=== PATIENT | female | born 1995 ===

== ENCOUNTER 2016-09-05 08:05 | Emergency (ER) | payer MEDICAID ==
--- NOTE | 2016-09-07 16:08 | ER ---
ADMIT: 09/05/2016 RM/LOC: ER [facility] MR#: [id number] [address] [facility] [address] [place], [place] [address] [address] [place] [address] Emergency Room Report SEX: F AGE: 21 : 1995 DATE: 09/05/2016 TIME: 0805 hours. Please refer to my T-sheet for complete H and P. HISTORY OF PRESENT ILLNESS: Briefly, the patient is a 21-year-old, who is 29 weeks , comes in with nausea and vomiting. She says the cramping epigastric pain is 4/10. No pelvic pain. No low back pain. No vaginal bleeding. PHYSICAL EXAMINATION: VITAL SIGNS: Blood pressure 108/85, pulse 72, respiration 14, temp 97.3, sat 100%. GENERAL: No acute distress. HEENT: Grossly normal. LUNGS: Clear. HEART: Regular. ABDOMEN: Mildly tender epigastric. No rebound, no guarding. No pain over the uterus. No pain in her back. SKIN: No rash. EMERGENCY DEPARTMENT COURSE: She was given an L normal saline bolus, Reglan 10 IV. She was feeling much better. Her CBC was normal except hemoglobin of 11.5. Chemistries were normal except potassium of 3.6. Lipase normal. UA normal. She was ready for discharge. ASSESSMENT: 1. Nausea and vomiting. 2. . PLAN: Fluids, return if worse. I wrote her a script for Reglan. Follow up with her OB. Luis Hobbs MD/ jesus JOB #: [id number] CC: Luis Hobbs MD, Attending Physician Robert Marinelli MD, Family Physician
[2016-09-27] MEDS ORDERED: PRENATAL VIT1 TAB PO (14:32)
[2016-09-27] MEDS ORDERED: TYLENOL #3 DPS1 TAB PO (14:32)
[2016-09-27] MEDS ORDERED: REGLAN-DPS10 MG PO (14:32)
[2016-11-27] MEDS ORDERED: COLACE-DPS100 MG PO (07:44)
[2016-11-27] MEDS ORDERED: MOTRIN-DPS800 MG PO (07:44)
[2016-11-27] MEDS ORDERED: TYLENOL EXTRA500 M1 PO (07:45)
[2016-11-27] MEDS ORDERED: NIPPLECREAM TP (07:45)
[2016-11-27] MEDS ORDERED: DERMOPLAST SPRA56 GM TP (07:45)
[2016-11-27] MEDS ORDERED: LAN-O-SOOTHE7 GM TP (07:45)
[2016-11-27] MEDS ORDERED: TUCKS1 EACH PR (07:46)
== END 2016-09-05 10:10 | disposition home or self-care (01) ==
LOC: ER 08:05
DX: O21.9 Vomiting of pregnancy, unspecified (principal); Z3A.29 29 weeks gestation of pregnancy; Z98.890 Other specified postprocedural states

== ENCOUNTER 2016-09-24 18:23 | Outpatient (CLI) | payer MEDICAID ==
[2016-09-27] MEDS ORDERED: PRENATAL VIT1 TAB PO (14:32)
[2016-09-27] MEDS ORDERED: REGLAN-DPS10 MG PO (14:32)
[2016-09-27] MEDS ORDERED: TYLENOL #3 DPS1 TAB PO (14:32)
[2016-11-27] MEDS ORDERED: COLACE-DPS100 MG PO (07:44)
[2016-11-27] MEDS ORDERED: MOTRIN-DPS800 MG PO (07:44)
[2016-11-27] MEDS ORDERED: DERMOPLAST SPRA56 GM TP (07:45)
[2016-11-27] MEDS ORDERED: NIPPLECREAM TP (07:45)
[2016-11-27] MEDS ORDERED: LAN-O-SOOTHE7 GM TP (07:45)
[2016-11-27] MEDS ORDERED: TYLENOL EXTRA500 M1 PO (07:45)
[2016-11-27] MEDS ORDERED: TUCKS1 EACH PR (07:46)
== END 2016-09-24 21:20 | disposition home or self-care (01) ==
LOC: BC 18:23 → WOR 18:24 → 2LDRP 18:24 → BC 21:20 → 2LDRP 21:20
DX: O99.89 Other specified diseases and conditions complicating pregnancy, childbirth and the puerperium (principal); R10.9 Unspecified abdominal pain

== ENCOUNTER 2016-09-25 17:17 | Observation (INO) | payer MEDICAID ==
[~2016-09-25] VITALS: Ht 160 cm; Wt 93.0 kg
[2016-09-27] MEDS ORDERED: PRENATAL VIT1 TAB PO (14:32)
[2016-09-27] MEDS ORDERED: TYLENOL #3 DPS1 TAB PO (14:32)
[2016-09-27] MEDS ORDERED: REGLAN-DPS10 MG PO (14:32)
--- NOTE | 2016-10-30 08:28 | HP ---
ADMIT: 09/25/2016 RM/LOC: 218 [facility] MR#: [id number] [address] [id number] [place], [place] [address] LITO OSBORNE [address] [place] [address] History and Physical SEX: F AGE: 21 : 1995 DATE OF SERVICE: PRINCIPAL DIAGNOSES: 1. Intrauterine at 32-1/2 weeks' estimated gestational age. 2. Right flank pain. HISTORY OF PRESENT ILLNESS: The patient is a 21-year-old female, 1, para 0, who presented at 32-1/2 weeks' estimated gestational age with complaint of right-sided flank pain. PREVIOUS MEDICAL HISTORY: The patient denies any significant previous medical history. SOCIAL HISTORY: She does not smoke, drink, or use drugs. FAMILY HISTORY: She denies any significant family medical history. ALLERGIES: SHE HAS NO KNOWN MEDICAL ALLERGIES. PHYSICAL EXAMINATION: The patient is a well-developed, well-nourished, overweight, female, alert and oriented in no apparent distress with normal stream of thought and content of speech. On presentation, the patient quite uncomfortable. heart tones reassuring. No uterine activity noted on the monitor. LABORATORY WORKUP: Within normal limits. No LFT elevations concerning for atypical presentation of PIH. Urinalysis showed a specific gravity 1.011, no blood, no nitrites. Ultrasound was performed, which showed a probable small nonobstructing calculus in the right kidney. ASSESSMENT: 1. Intrauterine at 32 and 1/2 weeks' estimated gestational age. 2. Right-sided nephrolithiasis. PLAN: We will plan on admitting the patient for observation and beginning IV fluids. We will begin the patient on medications for pain and nausea, and we will monitor for passage of the stone. Rudolph Arellano MD/ jesus JOB #: [id number] CC: Shari Dumont, Attending Physician Shari Dumont, Family Physician
[2016-11-27] MEDS ORDERED: MOTRIN-DPS800 MG PO (07:44)
[2016-11-27] MEDS ORDERED: COLACE-DPS100 MG PO (07:44)
[2016-11-27] MEDS ORDERED: TYLENOL EXTRA500 M1 PO (07:45)
[2016-11-27] MEDS ORDERED: LAN-O-SOOTHE7 GM TP (07:45)
[2016-11-27] MEDS ORDERED: NIPPLECREAM TP (07:45)
[2016-11-27] MEDS ORDERED: DERMOPLAST SPRA56 GM TP (07:45)
[2016-11-27] MEDS ORDERED: TUCKS1 EACH PR (07:46)
== END 2016-09-26 18:25 | disposition home or self-care (01) ==
LOC: 2LDRP 17:17 → BC 17:17 → 2LDRP 21:50
DX: O99.89 Other specified diseases and conditions complicating pregnancy, childbirth and the puerperium (principal); N20.0 Calculus of kidney; Z3A.32 32 weeks gestation of pregnancy

== ENCOUNTER 2016-09-27 22:30 | Observation (INO) | payer MEDICAID ==
[~2016-09-27 22:30] MED LIST: PRENATAL VIT1 TAB PO; REGLAN-DPS10 MG PO; TYLENOL #3 DPS1 TAB PO
[2016-09-29] MEDS ORDERED: PRENATAL VIT1 TAB PO (19:54)
[2016-09-29] MEDS ORDERED: ZOFRAN4 MG PO (19:54)
[2016-09-29] MEDS ORDERED: TYLENOL #3 DPS1 TAB PO (19:54)
[2016-09-29] MEDS ORDERED: PERCOCET 5 DPS1 TAB PO (19:55)
--- NOTE | 2016-10-12 09:00 | HP ---
ADMIT: 09/27/2016 RM/LOC: 221 [facility] MR#: [id number] [address] [facility] [address] [place], [place] [address] LITO OSBORNE [address] [place], [place] [address] History and Physical SEX: F AGE: 21 : 1995 DATE OF SERVICE: HISTORY OF PRESENT ILLNESS: This is a 21-year-old, G1, P0, with an intrauterine at 33 weeks and 0 days by definite LMP consistent with a 19-weeks ultrasound. Her has been complicated by history of chlamydia, status post treatment and admission earlier this week for nephrolithiasis. She presents earlier overnight with complaints of increased back pain as well as epigastric pain, which is new, mild nausea, no emesis, no overt hematuria, notes good movement, no loss of fluid, no vaginal bleeding, and no contractions. The patient was placed on observation for several hours and made n.p.o. Her epigastric pain has changed minimally and her back pain is mildly improved. PAST MEDICAL HISTORY: No significant past medical history. PREVIOUS SURGICAL HISTORY: Appendectomy in 06/2005 and tonsillectomy in 06/2008. PAST SOCIAL HISTORY: She does not smoke. No tobacco, no alcohol. She is not . She does live with her mother. FAMILY HISTORY: No significant family history, is noncontributory. ALLERGIES: NO KNOWN DRUG ALLERGIES. MEDICATIONS: She is taking vitamin daily. OB LABS: She is O positive. Varicella immune. Quad screen normal. Diabetic screen was 96. Rubella immune. Syphilis IgG negative. HIV negative. Hepatitis B surface antigen negative. PHYSICAL EXAMINATION: VITAL SIGNS: Blood pressure is 110/50, pulse is 77, respirations 16, temperature is 98.1, she is 97% on room air. heart tones 120, moderate variability, positive accelerations, no decelerations. [place] shows no contractions. GENERAL: The patient looks mildly uncomfortable in the bed. HEART: Regular rate and rhythm. No murmurs, rubs, or gallops. LUNGS: Clear to auscultation bilaterally. SPINE: She has mild CVA tenderness posteriorly. She does have point tenderness over muscles in the lumbar region bilaterally. ABDOMEN: She does have positive tenderness in the right upper quadrant. Nevarez sign is negative. Tenderness does appear to be more over uterus, particularly over parts in the movement. This pain is not present over the uterus and lower uterine segment. She does not have good bowel sounds. LABORATORY: Shows white count of 6.1, hemoglobin of 10.5, platelets of 228. Sodium 142, potassium 3.7, chloride 109, CO2 of 25, BUN 4, creatinine 0.5, and glucose is 68. AST 24, ALT is 27. The patient did have a right upper ADMIT: 09/27/2016 RM/LOC: 221 [facility] MR#: [id number] [address] [place] [id number] [facility] [place] [address] History and Physical SEX: F AGE: 21 : 1995 quadrant ultrasound this morning and that was normal. ASSESSMENT AND PLAN: This is a 21-year-old, 1, para 0, with an intrauterine at 33 and 0/7th weeks. Abdominal pain, seems likely continued symptoms with nephrolithiasis. The patient did have mild relief as an outpatient with Tylenol No. 3, but has required morphine and Percocet while being on observation here. We will continue IV fluids that increased rate overnight. We will advance diet tonight, see how she tolerates that. Right upper quadrant pain is likely due to positioning and movement. Labs are all normal with the exam being normal, I did discuss it is possible, she could have some underlying gallbladder etiology and at this point, I would not be best managed by diet modification with reduction of fat and animal products. The patient is amenable to trying this plan. We will try to manage pain with only oral medications and evaluate for candidacy for discharge in the morning. Shari Dumont MD/ jesus JOB #: [id number] CC: Shari Dumont, Attending Physician Shari Dumont, Family Physician
[2016-11-27] MEDS ORDERED: MOTRIN-DPS800 MG PO (07:44)
[2016-11-27] MEDS ORDERED: COLACE-DPS100 MG PO (07:44)
[2016-11-27] MEDS ORDERED: DERMOPLAST SPRA56 GM TP (07:45)
[2016-11-27] MEDS ORDERED: TYLENOL EXTRA500 M1 PO (07:45)
[2016-11-27] MEDS ORDERED: LAN-O-SOOTHE7 GM TP (07:45)
[2016-11-27] MEDS ORDERED: NIPPLECREAM TP (07:45)
[2016-11-27] MEDS ORDERED: TUCKS1 EACH PR (07:46)
== END 2016-09-29 11:37 | disposition home or self-care (01) ==
LOC: BC 22:30 → 2LDRP 22:30
DX: O99.89 Other specified diseases and conditions complicating pregnancy, childbirth and the puerperium (principal); R10.9 Unspecified abdominal pain; N20.0 Calculus of kidney; Z23 Encounter for immunization; Z3A.32 32 weeks gestation of pregnancy; Z98.890 Other specified postprocedural states

== ENCOUNTER 2016-11-22 18:35 | Inpatient (IN) | payer MEDICAID ==
[~2016-11-22] VITALS: Ht 160 cm; Wt 95.3 kg
--- NOTE | ~2016-11-22 | FD ---
ADMIT: 11/22/2016 RM/LOC: 222 [facility] MR#: [id number] [address] [address] LITO OSB[address]NE [address] [facility] [address] [place], [place] [address] Final Diagnosis SEX: F AGE: 21 : 1995 ADMISSION DATE: 11/22/2016 DISCHARGE DATE: 11/25/2016 FINAL DIAGNOSIS: 1. Term intrauterine at 41 weeks. 2. History of Chlamydia in . PROCEDURE: 1. Spontaneous vaginal delivery. 2. Removal of epidural catheter. Shari Dumont MD/ chivo JOB #: [id number] CC: Shari Dumont MD, Attending Physician Shari Dumont MD, Family Physician
--- NOTE | ~2016-11-22 | HP ---
ADMIT: 11/22/2016 RM/LOC: 222 [facility] MR#: [id number] [address] [place], [place] [address] BRIGID OSBORNE [address] [place], [place] [id number] History and Physical SEX: F AGE: 21 : 1995 DATE OF SERVICE: HISTORY OF PRESENT ILLNESS: Brigid is a 21-year-old, G1, P0, at 40 weeks and 6/7th days, who was sent over to Labor and Delivery for induction of labor for post dates. Her is complicated by history of late presentation to care. She also had chlamydia in , which was negative on recheck. The patient also indicated around 33-34 weeks of gestation that she had a history of hemophilia or had been told by a physician that she had hemophilia. All her coagulation, PT, PTT, and INR testing as well as von Willebrand's workup were negative. The patient does not have a clinical history of abnormal bleeding or heavy periods. Records were eventually requested and received. Clinical history reviewed that when she was approximately [age] years old, she had presented for tonsillectomy. 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 PAST MEDICAL HISTORY: Please see HPI. PAST SURGICAL HISTORY: She had tonsillectomy in June of 2008 and appendectomy in 06/2005. No problems or complications with bleeding during those procedures. SOCIAL HISTORY: She lives with her mother. She is single. Father of baby is not involved. She is a never smoker. She is not currently working. No alcohol. No drug use. ALLERGIES: NO KNOWN DRUG ALLERGIES. CURRENT MEDICATIONS: She is on vitamin daily. OBSTETRICAL HISTORY: Blood type, she is O positive. Antibody screen was negative. Rubella immune. Syphilis IgG negative. HIV negative. Hepatitis B surface antigen negative, platelets were 296 and those labs were all from 04/25/2016, drawn in [place]. She also had a normal 1 hour GTT of 96 and she is varicella immune. REVIEW OF SYSTEMS: The patient denies any fevers, chills, chest pain, shortness of breath, nausea, or vomiting. She reports good movement. No vaginal bleeding. No loss of fluid and intermittent contractions. PHYSICAL EXAMINATION: VITAL SIGNS: Blood pressure is 126/73, pulse is 88, respirations 16, temperature is 97.7, and she is 99% on room air. heart tones baseline is 140, moderate variability, positive accelerations, no decelerations noted. [place] shows contractions every 2-5 minutes. GENERAL: The patient is in no acute distress. HEART: Regular rate and rhythm. No murmurs, rubs, or gallops. LUNGS: Clear to auscultation bilaterally. ABDOMEN: Gravid. Estimated weight 3600 g. Sterile cervical exam shows ADMIT: 11/22/2016 RM/LOC: 222 [facility] MR#: [id number] [address] [address] BRIGID OSBORNE [facility] [address] History and Physical SEX: F AGE: 21 : 1995 cervix 1-2, 80% effaced, and -2 station. ASSESSMENT AND PLAN: This is a 21-year-old, 1, para 0, at 40 weeks and 6 days here for induction of labor for post dates. 1. Given patient is bora, we will proceed with induction with Pitocin. 2. GBS negative. No prophylaxis indicated. 3. Questionable history of hemophilia. Given normal coagulation studies, unable to do mixing studies to confirm previous diagnosis and therefore risk of bleeding does not appear to be elevated. We will notify Anesthesia so they are able to review her chart. 4. History of chlamydia, negative on repeat testing. Risks, benefits, and alternatives of procedure were discussed previously with the patient and she does understand. Shari Dumont MD/ jesus JOB #: [id number] CC: Shari Dumont, Attending Physician Shari Dumont, Family Physician
[~2016-11-22 18:35] MED LIST changes: +PERCOCET 5 DPS1 TAB PO; +ZOFRAN4 MG PO
[2016-11-27] MEDS ORDERED: COLACE-DPS100 MG PO (07:44)
[2016-11-27] MEDS ORDERED: MOTRIN-DPS800 MG PO (07:44)
[2016-11-27] MEDS ORDERED: DERMOPLAST SPRA56 GM TP (07:45)
[2016-11-27] MEDS ORDERED: TYLENOL EXTRA500 M1 PO (07:45)
[2016-11-27] MEDS ORDERED: NIPPLECREAM TP (07:45)
[2016-11-27] MEDS ORDERED: LAN-O-SOOTHE7 GM TP (07:45)
[2016-11-27] MEDS ORDERED: TUCKS1 EACH PR (07:46)
--- NOTE | 2016-12-03 13:38 | OR ---
ADMIT: 11/22/2016 RM/LOC: 222 [facility] MR#: [id number] [address] [facility] [address] [place], [place] [address] [address]O Som [address] [place] [address] Operative/Delivery Room Report SEX: F AGE: 21 : 1995 SURGERY DATE: 11/23/2016 SURGEON: Shari Dumont MD PREOPERATIVE DIAGNOSES: 1. Term intrauterine at 41 weeks. 2. Post dates. 3. History of chlamydia status post treatment. POSTOPERATIVE DIAGNOSES: 1. Term intrauterine at 41 weeks. 2. Post dates. 3. History of chlamydia status post treatment. PROCEDURE: Spontaneous vaginal delivery. FINDINGS: Viable female with scores of 8 and 9 and weight of 6 pounds, 15.47 ounces or 3160 g. Intact placenta with 3-vessel cord. Bilateral labial lacerations with the left requiring [id number] suture for hemostasis. First degree perineal laceration requiring repair and a left vaginal sulcal laceration requiring repair. INDICATIONS FOR PROCEDURE: This is a 21-year-old G1, P0, who presents to Labor and Delivery at 40 and 6/7th weeks for induction of labor. Her cervix was not favorable, however, she was bora too frequently for misoprostol. Pitocin was started for augmentation. She did have AROM with minimal return of fluid and progressed normally through labor and was found to be complete. She is GBS negative and penicillin was not indicated. DETAILS OF PROCEDURE: With maternal expulsive efforts, head was delivered over intact perineum. No nuchal cord was noted. The rest of the infant then delivered. Infant was vigorous and placed on maternal chest. Delayed cord clamping was employed x1 minute. The cord was then clamped and cut. Cord blood was collected. Placenta then delivered spontaneously intact ADMIT: 11/22/2016 RM/LOC: 222 [facility] MR#: [id number] [address] [place] [address] [place], [place] [address] LITO OSBONRE [address] [place] [address] Operative/Delivery Room Report SEX: F AGE: 21 : 1995 with 3-vessel cord. On examination, there were no cervical lacerations. There were bilateral labial lacerations with the left one bleeding which required a [id number] suture. The first degree perineal laceration was also noted to be bleeding and was repaired using 3-0 Vicryl in a running locked fashion and a left vaginal sulcal laceration that was repaired in a running locked fashion. Sponge and instrument counts were correct x2. COMPLICATIONS: None. ESTIMATED BLOOD LOSS: 300 mL. DISPOSITION: Mom stable in delivery room. to nursery. Shari Dumont MD/ jesus JOB #: [id number] CC: Shari Dumont, Attending Physician Shari Dumont, Family Physician
--- NOTE | 2016-12-03 13:38 | OR ---
ADMIT: 11/22/2016 RM/LOC: 222 [facility] MR#: [id number] [id number] [place], [place] [address] IN[address]O [address] [facility] [address] [place] [address] Operative/Delivery Room Report SEX: F AGE: 21 : 1995 SURGERY DATE: 11/23/2016 SURGEON: Shari Dumont MD PREOPERATIVE DIAGNOSES: 1. Status post spontaneous vaginal delivery. 2. Need for epidural pain management. POSTOPERATIVE DIAGNOSES: 1. Status post spontaneous vaginal delivery. 2. Need for epidural pain management. PROCEDURE: Removal of epidural catheter. PROCEDURE IN DETAIL: This is a 21-year-old, G1, P1-0-0-1, who is status post spontaneous vaginal delivery and repair of perineum. She no longer needed regional pain management. The patient was leaned forward so that the tape holding the epidural catheter in place could be removed. All tape was removed until the insertion site of the catheter was clearly seen. With gentle traction, the catheter was removed and tip was noted to be intact. There was no evidence of erythema, ecchymosis, induration, or bleeding around the insertion site. The patient tolerated the procedure well. Shari Dumont MD/ jesus JOB #: [id number] CC: Shari Dumont, Attending Physician Shari Dumont, Family Physician
== END 2016-11-25 13:30 | disposition home or self-care (01) | DRG 775 ==
LOC: BC 18:35 → 2LDRP 18:35
PROC: 10907ZC Drainage of Amniotic Fluid, Therapeutic from Products of Conception, Via Natural or Artificial Opening (ICD-10-PCS; principal; 2016-11-23)
PROC: 0HQ9XZZ Repair Perineum Skin, External Approach (ICD-10-PCS; principal; 2016-11-23)
PROC: 3E033VJ Introduction of Other Hormone into Peripheral Vein, Percutaneous Approach (ICD-10-PCS; principal; 2016-11-23)
PROC: 0UQMXZZ Repair Vulva, External Approach (ICD-10-PCS; principal; 2016-11-23)
PROC: 0UQGXZZ Repair Vagina, External Approach (ICD-10-PCS; principal; 2016-11-23)
PROC: 10E0XZZ Delivery of Products of Conception, External Approach (ICD-10-PCS; principal; 2016-11-23)
DX: O48.0 Post-term pregnancy (principal); O71.4 Obstetric high vaginal laceration alone; O70.0 First degree perineal laceration during delivery; Z3A.40 40 weeks gestation of pregnancy; Z37.0 Single live birth